=== PATIENT | male | born 1940 | race Caucasian/White ===

== ENCOUNTER 2017-02-04 08:55 | Inpatient (IN) | payer OTHER, MEDICARE ==
[~2017-02-04] VITALS: Ht 182.9 cm; Wt 81.8 kg
[2017-02-04] VITALS (9 sets, daily range): BP systolic 117–156; BP diastolic 58–78; PULSE 91–115; RESP 20–33; O2SAT 89–93
[~2017-02-04 08:55] MED LIST: ACET325T51 PO; ASPI-973 PO; CHOL400T30 PO; LACT1CAP60 PO; LOVA40TA PO; PSYL3.4P5 PO; TAMS0.4C98 PO; UBID1CAP52 PO
[2017-02-04] MEDS ORDERED: 0.9% Sodium Chloride 1,000 ML IV ONE (09:09)
--- NOTE | 2017-02-04 09:09 | ED.REPORT ---
HPI-General Illness Date of Service Feb 04, 2017 ED Provider: Cory Maldonado MD Pt is a 76 y/o male w/ a hx of MS, stage III lymphoma on Rituxan chemotherapy ( last dose January 08), presenting to the ED with family c/o cough onset 2 weeks ago. The patient's had URI-like symptoms and confirmed C. difficile diarrhea 3 weeks ago and since 1 week afterwards the patient has been experiencing similar symptoms. The patient reports possible fever (100F), cough with mild sputum, generalized weakness, SOB, very mild watery diarrhea. Pt denies CP, nausea, vomiting. He has no history of similar symptoms and no history of asthma, COPD, or CHF. Nursing Notes Stated Complaint: CHEST CONGESTION,COUGH,WEAKNESS Chief Complaint: General Complaint Nursing Notes Reviewed: Yes Allergies: Coded Allergies: Iodinated Contrast Media - Oral and (Verified Allergy, Severe, ANAPHYLAXIS , 01/01/17) PATIENT DOES NOT HAVE IODINE-CONTRAST DYE ALLERGY. NO COMPLICATIONS WITH ANY PRIORS SCANS. LL 01/01/17 penicillin (Verified Allergy, Severe, HIVES, 08/02/16) UPDATED FROM UNCODED hydrocodone (Unverified Allergy, Unknown, UNKNOWN, 08/02/16) morphine (Verified Adverse Reaction, Unknown, ALTERATED HEART RATE, ) UPDATED FROM UNCODED Uncoded Allergies: Iodine (Allergy, Severe, ANAPHYLAXIS (CONTRAST DYE), 07/12/16) Pt says he is not allergic to iodine, has had multiple scans without pre-treating. kld 07/12/16 Scheduled Aspirin (Aspirin) 81 Mg Tablet 81 MG PO DAILY Cholecalciferol (Vitamin D3) (Vitamin D) 400 Unit Tablet 400 UNIT PO DAILY Lactobac Cmb #3/Fos/Pantethine (Probiotic & Acidophilus Cap) 1 Each Capsule 1 EACH PO DAILY Lovastatin (Lovastatin) 40 Mg Tablet 40 MG PO HS Psyllium Husk/Aspartame (Metamucil Fiber Singles Packet) 3.4 Gm Powd.pack 3.4 GM PO prn Tamsulosin (Flomax) 0.4 Mg Capsule 0.4 MG PO DAILY Ubidecarenone/Vit E Acetate (Co Q-10 100 mg Softgel) 1 Each Capsule 1 EACH PO DAILY Scheduled PRN Acetaminophen (Acetaminophen) 325 Mg Tablet 650 MG PO Q4H PRN PRN For Pain General Time Seen by MD: 09:08 Chief Complaint Cough Hx Obtained From: Patient Arrived By: Walk-in Sudden in Onset?: No Onset Occurred: More than a week ago... (2 weeks) Symptom Duration: Since onset Severity: Current: No pain currently Severity: Maximum: No pain Similar Sx Previous: No Past Medical History Past Medical History Notes: Oncologist: Dr. 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 Hx kidney stones BPH Hx pressure ulcers Past Surgical History Cystoscopy and stone basket Hammertoe repair Partial skin CA removal Smoking History Former Smoker Social History Alcohol Use: Denies alcohol use Drug Use: Denies drug use Ambulatory Status Independent Review of Systems Full Review of Systems Constitutional: Reports: Fever, Weakness - generalized, Denies: Chills Respiratory: Reports: Non-productive cough, Shortness of breath Cardiovascular: Denies: Chest pain, Dyspnea on exertion GI: Reports: Diarrhea, Denies: Abdominal pain, Nausea, Vomiting Complete sys rev & neg: except as marked. Physical Exam Vital Signs Vital Signs Date Time Temp Pulse Resp B/P Pulse Ox O2 Delivery O2 Flow Rate FiO2 02/04/17 10:14 93 Nasal Cannula 2 02/04/17 10:12 91 20 130/58 89 Room Air 02/04/17 09:00 36.4 115 28 125/72 90 Initial VS: Reviewed, Vital signs abnormal Head / Eyes: Atraumatic, Normocephalic, PERRL Neck: Supple, Full range of motion Abdomen / GI: Soft, Non-tender, No guarding, No rebound, No distention Extremities: Vascular intact, Neuro intact, No swelling, No tenderness Neurologic: Alert, Oriented, Nonfocal Psychiatric: Mood/affect normal, Behavior normal, Normal thought content General/Constitutional: Awake, Alert, No acute distress, Cooperative, Not toxic appearing ENT: Atraumatic, Airway patent Mouth: Positive: Mucous membranes dry Respiratory / Chest: Breath sounds = bilat, No respiratory distress, No rales, No retractions, No stridor Coarse breath sounds bilaterally Cardiovascular: Regular rhythm, Heart sounds NL, No gallop, No murmurs, No rubs Heart Rate / Rhythm: Positive: Tachycardia Skin: Atraumatic, Warm, Dry, Intact Multiple squamos cell lesions about back No new rash Interpretation & Diagnostics Lab Results Interpretation Result Diagram: 02/04/17 0930 02/04/17 0930 Test 02/04/17 09:30 White Blood Count 7.6th/mm3 (3.8-10.1) Red Blood Count 4.21mil/mm3 (4.40-5.80) Hemoglobin 12.6g/dL (13.8-17.2) Hematocrit 37.8% (41.0-50.0) Mean Corpuscular Volume 89.8fL (81-100) Mean Corpuscular Hemoglobin 29.9pg (27.0-35.0) Mean Corpuscular Hemoglobin Concent 33.3% (32.0-37.0) Red Cell Distribution Width 13.9% (12.3-15.4) Platelet Count 176bil/L (150-400) Neutrophils (%) (Auto) 87.7% (40-74) Lymphocytes (%) (Auto) 3.3% (14-46) Monocytes (%) (Auto) 6.8% (4-12) Eosinophils (%) (Auto) 0.9% (0-5) Basophils (%) (Auto) 0.3% (0-3) Sodium Level 137mEq/L (134-144) Potassium Level 3.1mEq/L (3.5-5.2) Chloride Level 94mEq/L (97-108) Carbon Dioxide Level 27mmol/L (18-29) Blood Urea Nitrogen 18mg/dL (8-27) Creatinine 0.90mg/dL (0.76-1.27) Estimat Glomerular Filtration Rate 87mL/min (>59) Glucose Level 121mg/dL (60-99) Calcium Level 9.1mg/dL (8.5-10.1) Magnesium Level 2.0mg/dL (1.6-2.6) Total Bilirubin 0.9mg/dL (0.0-1.2) Aspartate Amino Transf (AST/SGOT) 39U/L (0-50) Alanine Aminotransferase (ALT/SGPT) 29U/L (0-44) Alkaline Phosphatase 78U/L (25-160) Troponin T 0.010ug/L (0.0-0.011) Pro-B-Type Natriuretic Peptide 1540pg/mL (0-486) Total Protein 6.6g/dL (6.4-8.4) Albumin 2.6g/dL (3.4-5.0) Hold Denise Top Tube Received (Received) ECG Interpretation ECG Interpretation: Likely A-fib rate [address] segment elevation ST depression 1-2 mm present in lateral leads Very poor baseline quality EKG Compared to prior dated 02/22/15 he is now tachycardic and does not appear to be in sinus rhythm Time: 09:56 Interpreted by: ED physician Normal ECG Interpretation: No acute ischemic changes ECG Interpretation: Sinus tachycardia rate 102 Frequent PVCs Time: 11:14 Interpreted by: ED physician Normal ECG Interpretation: No acute ischemic changes, Normal axis, Normal intervals X-Ray Chest Interpretation Chest Xray Interpretation: IMPRESSION: 1. Left lower lobe retrocardiac consolidation likely representing pneumonia given clinical history. Dictated by: Issa Loving M.D. on 02/04/2017 at 10:08 Approved by: Issa Loving M.D. on 02/04/2017 at 10:09 Wet read by ED physician: RLL pneumonia View: Portable, AP & lat Interpretation / Wet Read by: Interpret - Radiologist Re-Eval/Medical Decision Med Decision/Clinical Course Pt is a 76 y/o male w/ a hx of MS, stage III lymphoma on Rituxan chemotherapy ( last dose January 08), presenting to the ED with family c/o cough onset 2 weeks ago. The patient's had URI-like symptoms and confirmed C. difficile diarrhea 3 weeks ago and since 1 week afterwards the patient has been experiencing similar symptoms. The patient reports possible fever (100F), cough with mild sputum, generalized weakness, SOB, very mild watery diarrhea. Labs notable as below: CBC: No leukocytosis, HCT of 37.8 CMP: Potassium of 3.1, good renal function, no other sig electrolyte abnormalities Troponin: negative BNP: 1,540 Chest x-ray: Left lower lobe retrocardiac consolidation likely representing pneumonia given clinical history. EKG: Likely A-fib rate [address] No [address] segment elevation ST depression 1-2 mm present in lateral leads Very poor baseline quality EKG Compared to prior dated 02/22/15 he is now tachycardic and does not appear to be in sinus rhythm This time overall constellation of symptoms and presentation suggestive of pneumonia. Given that the patient is on chemotherapy he meets criteria to be treated for hospital-acquired pneumonia. He is allergic to penicillin so I have started him on IV vancomycin, levofloxacin and cefepime. Here in the emergency room he was additionally treated with IV fluids and potassium was repleted. He remained hemodynamically stable and afebrile. I considered other causes of his presentation including pulmonary embolism however the overall clinical picture is overwhelmingly suggestive of pneumonia. Initial screening for acute coronary syndrome is reassuring. Repeat EKG demonstrated sinus rhythm with frequent PVCs though no convincing acute ischemic changes. Patient was discussed with admitting hospitalist and accepted for further management. He is transferred in stable condition. Time of Eval: 10:32 Re-Evaluation/Progress Note: Pt rechecked. Informed pt of need for admission. Pt understands and agrees with plan for admission. All questions addressed. Consultation : Referral / Consult Name: Albaro Evans MD Consulted With: Hospitalist Call Returned at: 10:53 [place] Calciner: Will see patient, Agrees with eval, Agrees with plan, Accepts admit Counseled Regarding: Diagnosis, Lab results, Need for admission Discharge & Departure Primary Impression: Right lower lobe pneumonia Pneumonia type: due to unspecified organism Qualified Code: J18.1 - Lobar pneumonia, unspecified organism Additional Impressions: Hypoxia Hypokalemia Patient on antineoplastic chemotherapy regimen History of lymphoma Tachycardia Fatigue Fatigue type: unspecified Qualified Code: R53.83 - Other fatigue Disposition: ADMITTED TO HOSPITAL Discharge Condition All VS Reviewed: Yes Condition: Stable Referrals: Paul Zazueta MD (PCP) Crit Care Except Billable Proc Time Spent: 75-104 minutes Services Performed: Patient management by me, Time spent at bedside, Reviewing test results, Reviewing imaging, Discussing patient care, Documentation in record, Time with fam/surrogate Scribe Attestation Portions of this note were transcribed by Keaton Steinberg. I, Dr. Maldonado personally performed the history, physical exam and medical decision-making; I reviewed and confirmed the accuracy of the information in the transcribed note. Signed by Julee Tyson, 02/04/17 - 1000 copies to: Paul Zazueta MD, Beck O MD Feb 04, 2017 09:09 KEATON STEINBERG Feb 04, 2017 09:17
[2017-02-04 09:48] LABS: BASOPHILS % (AUTO) 0.3 % (0-3); EOSINOPHILS % (AUTO) 0.9 % (0-5); MONOCYTES % (AUTO) 6.8 % (4-12); Mean Corpuscular Hemoglobin 29.9 pg (27.0-35.0); Mean Corpuscular Volume 89.8 fL (81-100); NEUTROPHILS % (AUTO) 87.7 % (40-74); Platelet Count 176 bil/L (150-400)
[2017-02-04 10:10] LABS: TROPONIN T 0.01 ug/L (0.0-0.011)
[2017-02-04] MEDS ORDERED: Ondansetron 2 mg/mL 2 mL Inj IVPUSH PRN ×2 (10:10→11:10)
[2017-02-04] MEDS ORDERED: Alum-Mag Hydrox-Simeth 30 mL Suspension PO PRN ×2 (10:10→11:10)
--- NOTE | 2017-02-04 10:16 | DRSVH ---
PROCEDURE: X-RAY CHEST, TWO VIEWS ([id number]) INDICATIONS: cough TECHNIQUE: 2 views of the chest were acquired. COMPARISON: [facility], CHEST 2VW, 01/26/2017, 12:58 PM. FINDINGS: Surgical changes and devices: None. Lungs and pleura: No pleural effusions or pneumothorax. There are confluent left retrocardiac lower lobe airspace opacities consistent with consolidation. Mediastinum: Mediastinal contours are normal. Heart size is normal. Bones and chest wall: No suspicious bony abnormalities. Soft tissues appear unremarkable. IMPRESSION: 1. Left lower lobe retrocardiac consolidation likely representing pneumonia given clinical history. Dictated by: Issa Loving M.D. on 02/04/2017 at 10:08 Approved by: Issa Loving M.D. on 02/04/2017 at 10:09
[2017-02-04] MEDS ORDERED: Vancomycin Dose per Pharmacist XX ONE (10:35)
[2017-02-04] MEDS ORDERED: levoFLOXacin Inj 750 MG in IV Premix 1 EACH IV ONE (10:35)
[2017-02-04] MEDS ORDERED: Cefepime Inj 2 GM in IV Premix 1 EACH IV ONE (10:35)
[2017-02-04] MEDS ORDERED: Cefepime 2,000 mg/100 mL D5W Minibag Plus IV ONE ×2 (10:40)
[2017-02-04] MEDS ORDERED: Vancomycin Inj 1,500 MG in 0.9% Sodium Chloride 500 ML IV ONE (10:58)
[2017-02-04] MEDS ORDERED: Polyethylene Glycol (PEG) 17 Gm Powder PO PRN (11:10)
[2017-02-04] MEDS ORDERED: CHOL40003 PO (11:54)
[2017-02-04] MEDS ORDERED: DOXA1TAB PO (11:57)
[2017-02-04] MEDS ORDERED: CALC-714 PO (11:58)
[2017-02-04] MEDS ORDERED: 0.9% Sodium Chloride 250 ML ONE (12:47)
--- NOTE | 2017-02-04 13:50 | PCM.HPMED ---
Subjective Date of Service Feb 04, 2017 Primary Provider: Admitting Physician: Albaro Evans MD Primary Care Physician: Paul Zazueta MD Attending Physician: Albaro Evans MD Admit Status: From the Emergency Department, Full Admit, Admit to Red Team Chief Complaint: Progressively worsening dyspnea/2 weeks Progressively worsening cough/2 weeks History of Present Illness: Len is a pleasant 76-year-old gentleman with past medical history of MS with some left-sided weakness, BPH, HLD , follicular lymphoma on monthly rituximab, skin cancer, squamous cell and basal cell carcinoma currently undergoing serial excisions came to the emergency room due to progressively worsening cough and dyspnea of 2 weeks. states she had similar symptoms before patient developed any symptoms. She Had URI symptoms 2-3 weeks ago which improved by itself. She was not treated with antibiotics but developed diarrhea 5 days after onset of URI symptoms. She was diagnosed with C. difficile colitis and started on antibiotics. She will complete her antibiotic after 3 days. She has on and off diarrhea currently. states patient/ started to have similar symptoms of URI few days after she started to have symptoms. Symptoms include cough, stuffiness and malaise. recovered pretty quickly but patient continued to have progressively worsening coughing and dyspnea. Cough was initially dry but eventually became productive of sputum. He also had low-grade fever. Denies pleuritic chest pain. He had one episode of diarrhea few days ago but resolved now. He also has bilateral eye redness and discharge/crusting since yesterday. He has multiple squamous and basal cell skin cancer. He had recent excision of lesions on his left forearm. He is also scheduled to undergo additional excisions on forearm and lower extremities next week ED course: Tachypneic 28/m, tachycardic 115/m, BP 125/72, saturating 89% on room air, Chest x-ray showed left lower lobe pneumonia, EKG sinus tach Cefepime, Levaquin, vancomycin, given for HCAP given patient with cancer on chemotherapy and admission requested. Review of Systems: A comprehensive review of systems performed, pertinent positives and negatives included in history of present illness Allergies Coded Allergies: Iodinated Contrast Media - Oral and (Verified Allergy, Severe, ANAPHYLAXIS , 01/01/17) PATIENT DOES NOT HAVE IODINE-CONTRAST DYE ALLERGY. NO COMPLICATIONS WITH ANY PRIORS SCANS. LL 01/01/17 penicillin (Verified Allergy, Severe, HIVES, 08/02/16) UPDATED FROM UNCODED hydrocodone (Unverified Allergy, Unknown, UNKNOWN, 08/02/16) morphine (Verified Adverse Reaction, Unknown, ALTERATED HEART RATE, ) UPDATED FROM UNCODED Uncoded Allergies: Iodine (Allergy, Severe, ANAPHYLAXIS (CONTRAST DYE), 07/12/16) Pt says he is not allergic to iodine, has had multiple scans without pre-treating. kld 07/12/16 Home Medications rituximab monthly infusion Aspirin (Aspirin) 81 Mg Tablet 81 MG PO DAILY Cholecalciferol (Vitamin D3) (Vitamin D) 400 Unit Tablet 400 UNIT PO DAILY Lactobac Cmb #3/Fos/Pantethine (Probiotic & Acidophilus Cap) 1 Each Capsule 1 EACH PO DAILY Lovastatin (Lovastatin) 40 Mg Tablet 1/2 tab PO HS Psyllium Husk/Aspartame (Metamucil Fiber Singles Packet) 3.4 Gm Powd.pack 3.4 GM PO prn doxazosin 2mg tab 1/2 tab daily Ubidecarenone/Vit E Acetate (Co Q-10 100 mg Softgel) 1 Each Capsule 1 EACH PO DAILY PMH Suspected STEVEN but never had a sleep study MS diagnosed 1976 with left-sided weakness, uses walker Hiatal hernia follicula 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 Hx kidney stones BPH Surgical History Cystoscopy and stone basket Hammertoe repair Recent skin cancer excision Laparoscopy and biopsy of abdominal lymphoma Family History Father has a history of prostate cancer Social History Hx Alcohol Use: No Hx Substance Use: No Hx Tobacco Use: No Smoking Status: Former Smoker Exam Vital Signs Vital Sign - Last Date Time Temp Pulse Resp B/P Pulse Ox O2 Delivery O2 Flow Rate FiO2 02/04/17 13:32 109 33 91 Nasal Cannula 3.00 02/04/17 12:21 36.8 154/77 Exam Gen. In moderate respiratory distress HEENT: Head is normocephalic atraumatic, bilateral conjunctival erythema with purulent discharge and crusting Lungs left basilar crackle Heart regular rhythm without murmurs gallops or rubs. Tachycardic Abdomen soft nontender without hepatosplenomegaly Extremities pulses are present dorsalis pedis posterior tibialis and radial. Skin left forearm recent excision site healing. Multiple skin cancer lesions on forearm ,back and lower extremities Psych alert and oriented to person place and time Neuro cranial nerves II through XII are grossly intact. power 5/5 on bilateral upper and RLE,3/5 on LLE Lymph: There is no lymphadenopathy appreciated in the cervical supra infraclavicular regions : no singer Lab and Diagnostics Result Diagram: 02/04/1792902/04/17 0930 X-Rays, CTs and MRIs PROCEDURE: X-RAY CHEST, TWO VIEWS ([id number]) INDICATIONS: cough TECHNIQUE: 2 views of the chest were acquired. COMPARISON: [facility] Ferrell , CHEST 2VW, 01/26/2017, 12:58 PM. FINDINGS: Surgical changes and devices: None. Lungs and pleura: No pleural effusions or pneumothorax. There are confluent left retrocardiac lower lobe airspace opacities consistent with consolidation. Mediastinum: Mediastinal contours are normal. Heart size is normal. Bones and chest wall: No suspicious bony abnormalities. Soft tissues appear unremarkable. IMPRESSION: 1. Left lower lobe retrocardiac consolidation likely representing pneumonia given clinical history. Dictated by: Issa Loving M.D. 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 #Sepsis due to HCAP -Tachycardic and tachypneic, -IV fluids given in the ED,NS at 100ml/h -Cefepime, Levaquin, vancomycin started in the ED,c/w that - Blood culture pending,procal 0.78 -CXR left lower lobe retrocardiac pneumonia, CT chest pending -O2 via NC -Patient's history is consistent with pneumonia but he has no fever or leukocytosis. He also has elevated d-dimer and multiple risk factors for PE which includes multiple cancers(lymphoma,basal and squamous cell skin ca) , relative immobility with left-sided weakness due to MS.will obtain CTA chest -Legionella and pneumococcus urine antigen requested, sputum culture sent, resp PCR panel requested -consider ID consult tomorrow # Acute hypoxic respiratory failure due to above -Management as above # acute bacterial conjunctivis -erythromycin eye drop # hyokalemia -repleted # Follicular lymphoma on rituximab -notify Dr Patel tomorrow # skin cancer ,squamous cell and basal cell carcinoma -patient has scheduled excision next week ,may need to reschedule # history of MS not on treatment # BPH -c/w doxazosin # HLD -c/w statin dvt ppx lovenox Patient admitted under inpatient status with expected length of stay > 2 midnights for severity of present symptoms, complexities of treatment plan and risk for adverse events full code per patient Resuscitation Status: CPR: Attempt Resuscitation copies to: Yan Frias MD; Paul Zazueta MD, Melaku MD Feb 04, 2017 13:50
--- NOTE | 2017-02-04 15:48 | DRSVH ---
PROCEDURE: CT ANGIO CHEST PULMONARY EMBOLISM ([id number]) INDICATIONS: dyspnea and elevated d-dimer TECHNIQUE: After the administration of intravenous contrast, 2 mm thick sections acquired from the pulmonary api jackson to the posterior costophrenic angles. 3-dimensional maximum intensity projection (MIP) coronal a nd sagittal reformats were then acquired through the thorax. For radiation dose reduction, the follo wing was used: automated exposure control, adjustment of mA and/or kV according to patient size. COMPARISON: [facility], CT, CT CHEST ABD PELVIS W CON, 01/02/2017, 9:54. FINDINGS: Image quality: There is motion artifact limiting evaluation. Pulmonary arteries: Pulmonary arteries are normal in size, and demonstrate no intraluminal filling d efects to suggest central pulmonary embolism. Evaluation of subsegmental branches is limited due to motion artifact. Lungs and pleura: There is confluent airspace consolidation within the bilateral lower lobes as well as in the dependent segments of the upper lobes. Findings are consistent with pneumonia. No pleural effusions or pneumothorax. Central and peripheral airways are patent. Mediastinum: Heart size is normal, without pericardial effusion. There multiple mildly enlarged med iastinal and right hilar lymph nodes which are increased in size from the prior study. These include a [employer] subcarinal node measuring 1.3 cm in short axis. Thoracic aorta is normal in calibe r and enhancement. Esophagus is normal in caliber, with a small hiatal hernia. Bones and chest wall: No suspicious bony lesions. Ribs and thoracic spine appear intact throughout. Thyroid gland demonstrates no discrete nodules. No axillary or supraclavicular adenopathy. Abdomen: Visualized upper abdominal solid organs appear normal in the early arterial phase of enhanc ement. IMPRESSION: 1. Bilateral areas of consolidation, most prominent within the right lower lobe, consistent with pne umonia. 2. No evidence of central pulmonary embolism. Evaluation of subsegmental branches limited to motion artifact. 2. Mild mediastinal and right hilar lymph node enlargement new from the prior study. Although the f indings may be reactive secondary to patient's presumed pneumonia, short term followup is recommended to demonstrate resolution. Dictated by: Issa Loving M.D. on 02/04/2017 at 15:37 Approved by: Issa Loving M.D. on 02/04/2017 at 15:46
[2017-02-04] MEDS: Erythromycin 0.5% 3.5 Gm Ophthalmic Ointment BOTH_EYES SCH ×2 (15:52→20:04)
[2017-02-04] MEDS: 0.9% Sodium Chloride 1,000 ML IV SCH (15:52)
[2017-02-04 16:01] LABS: APPEARANCE,URINE CLEAR (CLEAR,HAZY); COLOR,URINE YELLOW (YELLOW); OCCULT BLOOD,URINE TRACE (NEGATIVE); PH,URINE 6.5 (5.0-8.0); UROBILINOGEN,URINE NORMAL (NORMAL)
[2017-02-04] MEDS: Cefepime Inj 1,000 MG in Dextrose 5% Minibag Plus 50 ML IV SCH (20:04)
[2017-02-05 00:22] VITALS: BP 121/70; PULSE 109; RESP 24; O2SAT 93
[2017-02-05] MEDS: 0.9% Sodium Chloride 1,000 ML IV SCH ×3 (01:20→16:11)
[2017-02-05] MEDS: Cefepime Inj 1,000 MG in Dextrose 5% Minibag Plus 50 ML IV SCH ×3 (04:12→19:43)
[2017-02-05 04:44] VITALS: BP 128/80; PULSE 96; RESP 26; O2SAT 93
[2017-02-05 05:47] LABS: BASOPHILS % (AUTO) 0.1 % (0-3); EOSINOPHILS % (AUTO) 0.5 % (0-5); MONOCYTES % (AUTO) 6.9 % (4-12); Mean Corpuscular Hemoglobin 29.9 pg (27.0-35.0); Mean Corpuscular Volume 89.6 fL (81-100); NEUTROPHILS % (AUTO) 87.7 % (40-74); Platelet Count 144 bil/L (150-400)
[2017-02-05 06:10] LABS: Magnesium 1.9 mg/dL (1.6-2.6)
[2017-02-05] MEDS ORDERED: Potassium Chloride 20 mEq SR Tablet PO ONE (08:05)
[2017-02-05] MEDS ORDERED: Potassium Chloride Inj 30 MEQ in Dextrose 5% 500 ML IV ONE (08:05)
[2017-02-05] MEDS: Erythromycin 0.5% 3.5 Gm Ophthalmic Ointment BOTH_EYES SCH ×3 (09:22→19:43)
[2017-02-05 11:38] VITALS: PULSE 90
[2017-02-05] MEDS ORDERED: levoFLOXacin Inj 750 MG in IV Premix 1 EACH IV SCH (13:00)
--- NOTE | 2017-02-05 14:15 | PCM.PNMED ---
Subjective Date of Service Feb 05, 2017 Subjective pt still remained tachy, mildly SOB, felt mildly better than yesterday tolerating cefepime no diarrhea having thick sputum Exam Vital Signs Vital Sign - Last Date Time Temp Pulse Resp B/P Pulse Ox O2 Delivery O2 Flow Rate FiO2 02/05/17 04:44 36.7 96 26 128/80 93 Nasal Cannula 2.00 Intake and Output 02/04/17 02/04/17 02/05/17 Cumulative From/Thru 15:00 23:00 07:00 02/04/17 09:00 - 02/04/17 20:10 Intake Total 1000 ml 1035 ml 2035 ml Output Total 350 ml 350 ml Balance 1000 ml 685 ml 1685 ml Intake Oral 800 ml 800 ml IV Total 1000 ml 235 ml 1235 ml Output Urine Total 350 ml 350 ml Exam NAD, comfortably laying down on the bed no JVD, MMM, no LAD RRR, nl s1, s2 no mrg rhonchi throughout, no w,c distended bowel, hypoactive BS+ mildly edematous left hand, sensory intact LE: warm, no edema, pulses 2/2 IVs and Medications Medications Reviewed: Medications were reviewed in detail Lab and Diagnostics Result Diagram: 02/05/17 0508 02/05/17 0508 X-Rays, CTs and MRIs PROCEDURE: X-RAY CHEST, TWO VIEWS ([id number]) INDICATIONS: cough TECHNIQUE: 2 views of the chest were acquired. COMPARISON: [facility], CHEST 2VW, 01/26/2017, 12:58 PM. FINDINGS: Surgical changes and devices: None. Lungs and pleura: No pleural effusions or pneumothorax. There are confluent left retrocardiac lower lobe airspace opacities consistent with consolidation. Mediastinum: Mediastinal contours are normal. Heart size is normal. Bones and chest wall: No suspicious bony abnormalities. Soft tissues appear unremarkable. IMPRESSION: 1. Left lower lobe retrocardiac consolidation likely representing pneumonia given clinical history. Dictated by: Issa Loving M.D. 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 acute, active, #Sepsis due to HCAP, Tachycardic and tachypneic, procal 0.78. CXR left lower lobe retrocardiac pneumonia, CT chest showed dense consolidation at bilateral bases R>L, possibly represent post obstructive pneumonia. PE ruled out -IV fluids given in the ED,NS at 100ml/h -Cefepime, Levaquin, vancomycin started in the ED, continue for now, appreciate ID insight -O2 via NC as needed -awaits infectious w/u: Legionella and pneumococcus urine antigen requested, sputum culture sent, resp PCR panel requested # Acute hypoxic respiratory failure due to above, 93% on 2liters, -Management as above -so far, pt didn't require advance airway, will monitor for now in [facility], possible transfer if O2 requirement goes up. # acute bacterial conjunctivis -erythromycin eye drop # history of MS, patient also noticed severe lower extremity weakness with MS flare in the past, which was similar to recent worsening of LE weakness, denied any paresthesia, focal weakness. -appreciate daily PT, not initiate immunosuppressive with these findings yet, monitor sx daily #severe hyokalemia, POA, presumably GI fluid loss, chronic, stable # Follicular lymphoma on rituximab monthly , last dose mid December. -notify Dr Patel today -given CT findings, pt may require bronchoscopic bx in the future, unclear current dz status, will defer to oncology # skin cancer ,squamous cell and basal cell carcinoma -patient has scheduled excision next week ,may need to reschedule # BPH -c/w doxazosin # HLD -c/w statin dvt ppx lovenox dispo: 3-4more days, Full Code VTE Mechanical Devices: Intermittant Pneumatic CD Resuscitation Status: CPR: Attempt Resuscitation Time spent 35min Thomas Camarena MD Feb 05, 2017 08:47
[2017-02-05 17:00] VITALS: BP 121/80; PULSE 94; RESP 24; O2SAT 94
[2017-02-05 19:36] VITALS: BP 117/68; PULSE 97; RESP 20; O2SAT 91
[2017-02-05 20:00] VITALS: PULSE 103
--- NOTE | 2017-02-05 21:57 | CONS ---
[address] [address] CONSULTATION REPORT PATIENT: LILA MCKEON : 1940 MR#: [id number] ADMIT: 02/04/2017 JOB ID: [id number] DATE OF SERVICE: 02/05/[address] Camarena for this timely consult. REASON FOR CONSULTATION: Bilateral right greater than left pneumonia in a patient with underlying multiple sclerosis and B-cell lymphoma. HISTORY OF PRESENT ILLNESS: The patient is a 76-year-old, retired [employer] with underlying MS and lymphoma. He reports that about two weeks ago he developed increasing cough which was productive of whitish sputum. This was in association with perhaps some increasing shortness of breath and some subjective low-grade fever and sweats. This slowly progressed until yesterday when he was so weak that it sounds like he fell off the toilet yesterday while in the bathroom and because of progressive weakness as well as the productive cough ,subjective fever and malaise, he was brought to the emergency department and admitted. Chest imaging done yesterday suggested right greater than left pneumonia and, for this reason, the patient was admitted for additional evaluation and treatment. It is unclear to me exactly why he was considered to have healthcare-associated pneumonia as it has been years since he has been in the hospital, and he lives at home with his near [place] rather than in a [facility] facility but, nonetheless, he was placed on cefepime and levofloxacin as empiric treatment for this pneumonia. PAST MEDICAL HISTORY: 1. Multiple sclerosis times more than 20 years. 2. B-cell lymphoma controlled with monthly rituximab. 3. Basal cell carcinomas. 4. Squamous cell carcinoma. SOCIAL HISTORY: The patient lives [place] with his . The patient smoked in the distant past. Has not had alcohol in many years either. He and his used to drive back and forth to [place] regularly, but their last drive back there was about three years ago and they have not traveled out of state since that time. FAMILY HISTORY: Negative for tuberculosis in 1st and 2nd-degree relatives. REVIEW OF SYSTEMS: The patient has no significant headache. No acute visual change. No sore throat. He does have the productive cough, as described. He has intermittently hoarse voice. No nausea, vomiting, diarrhea, though we did have some minimal diarrhea symptoms about a week ago. No genitourinary symptoms. He does not have an indwelling Mann nor a neurogenic bladder. The patient is unable to ambulate very well because of his progressive MS and uses a walker and/or a cane. A walker as needed whenever he leaves the house. No skin rashes noted. The remainder of the review of systems is negative. PHYSICAL EXAMINATION: Reveals a somewhat debilitated, 76-year-old gentleman lying at about 45 degrees in his hospital bed. He has been afebrile during his short time here in the hospital. Temperature has been hypothermic at times, is 34.4 during a prior admission, but on this admission has been right around 37 degrees, currently 36.7, pulse is 90, respiratory rate 26, blood pressure 128/80, saturating well on 2 L. He is in no acute distress. Head is notable for a small laceration on his posterior scalp secondary to his fall. This appears uninfected. Sinuses nontender. Eyes without conjunctivitis. Oral cavity: No thrush or hairy leukoplakia. Neck without adenopathy or overt JVD. The lungs with some rales at the bases, perhaps right greater than left. Cardiac tones: Regular rate and rhythm without significant murmur. Abdomen: Slightly distended, diffusely but without focal tenderness or mass. No hepatosplenomegaly. No ascites. Does not have a Mann catheter. No skin rashes noted. His extremities are significant for weakness bilaterally, probably no more than 3+/5. Minimal peripheral edema. No evidence of synovitis. No evidence of skin breakdown. He has peripheral IVs in both arms. LABORATORIES: Include white count 7500 x2 days in a row now, a mild left shift, 87% segs, creatinine 0.71. LFTs normal. Albumin 2.5. Procalcitonin was 0.78 yesterday, 0.64 today. Urinalysis 0-5 white cells. IgG is excellent at 752. Urine Legionella and pneumococcal antigens are negative. Micro includes negative blood cultures and initial sputum Gram stain moderate polys and minimal mixed shaun. Respiratory viral multiplex PCR negative. MRSA screen negative. IMAGING: Includes a CT scan of the chest which we carefully reviewed on the monitor. It shows bilateral consolidation, much more so on the right, consistent with pneumonia. There is no evidence of PE. Some adenopathy is noted. IMPRESSION: This is a patient who appears to have community-acquired pneumonia. Though he is on rituximab, he really is not terribly immunosuppressed. Rituximab predisposes minimally to infection and typically the infections which are seen with rituximab include Pneumocystis, crypto, CMV or hepatitis B reactivation. Only crypto and Pneumocystis would be pulmonary-type infections and his chest CT does not suggest either. RECOMMENDATIONS: 1. Will continue with current antibiotics but with an eye towards narrowing considerably. 2. Cryptoantigen will be ordered. 3. Will convert the levofloxacin from IV to oral. 4. As the patient improves, it may be reasonable to send him out on cefuroxime alone in the near future. 5. I would continue to get procalcitonins on a fairly frequent level and use this is a marker for improvement. Thank you very much for this consult.
[2017-02-06] VITALS (9 sets, daily range): BP systolic 122–161; BP diastolic 68–86; PULSE 73–99; RESP 18–20; O2SAT 91–97
[2017-02-06] MEDS: Cefepime Inj 1,000 MG in Dextrose 5% Minibag Plus 50 ML IV SCH ×3 (04:03→23:32)
[2017-02-06 06:46] LABS: BASOPHILS % (AUTO) 0.1 % (0-3); EOSINOPHILS % (AUTO) 0.5 % (0-5); MONOCYTES % (AUTO) 6.6 % (4-12); Mean Corpuscular Hemoglobin 29.7 pg (27.0-35.0); Mean Corpuscular Volume 89.3 fL (81-100); NEUTROPHILS % (AUTO) 88.4 % (40-74); Platelet Count 153 bil/L (150-400)
[2017-02-06 06:55] LABS: Magnesium 1.8 mg/dL (1.6-2.6); Phosphorus 2.5 mg/dL (2.5-4.9)
[2017-02-06] MEDS: levoFLOXacin 750 mg Tablet PO SCH (08:18)
[2017-02-06] MEDS: Erythromycin 0.5% 3.5 Gm Ophthalmic Ointment BOTH_EYES SCH ×3 (08:20→21:16)
[2017-02-06] MEDS ORDERED: Potassium Chloride 20 mEq SR Tablet PO ONE (11:00)
[2017-02-06] MEDS ORDERED: Potassium Chloride Inj 20 MEQ in Dextrose 5% 250 ML IV ONE (11:00)
--- NOTE | 2017-02-06 11:06 | PCM.PNMED ---
Subjective Date of Service Feb 06, 2017 Subjective sputum is breaking up, still coughing, denied SOB still fairly weak, feels mildly better than yesterday labs on right direction Exam Vital Signs Vital Sign - Last Date Time Temp Pulse Resp B/P Pulse Ox O2 Delivery O2 Flow Rate FiO2 02/06/17 10:10 36.7 93 18 122/68 93 Nasal Cannula 2.00 Intake and Output 02/05/17 02/05/17 02/06/17 Cumulative From/Thru 15:00 23:00 07:00 02/04/17 09:00 - 02/06/17 06:16 Intake Total 800 ml 3011 ml 1766 ml 7612 ml Output Total 450 ml 700 ml 1500 ml Balance 350 ml 3011 ml 1066 ml 6112 ml Intake Oral 800 ml 1000 ml 2600 ml IV Total 3011 ml 766 ml 5012 ml Output Urine Total 450 ml 700 ml 1500 ml # Voids 2 2 # Bowel Movements 0 0 0 Exam NAD, comfortably laying down on the bed no JVD, MMM, no LAD RRR, nl s1, s2 no mrg mild rhonchi throughout, no w,c distended bowel, hypoactive BS+ mildly edematous left hand, improved from yesterday, sensory intact LE: warm, no edema, pulses 2/2 IVs and Medications Medications Reviewed: Medications were reviewed in detail Lab and Diagnostics Result Diagram: 02/06/17 0600 02/06/17 0600 X-Rays, CTs and MRIs PROCEDURE: X-RAY CHEST, TWO VIEWS ([id number]) INDICATIONS: cough TECHNIQUE: 2 views of the chest were acquired. COMPARISON: [facility], CHEST 2VW, 01/26/2017, 12:58 PM. FINDINGS: Surgical changes and devices: None. Lungs and pleura: No pleural effusions or pneumothorax. There are confluent left retrocardiac lower lobe airspace opacities consistent with consolidation. Mediastinum: Mediastinal contours are normal. Heart size is normal. Bones and chest wall: No suspicious bony abnormalities. Soft tissues appear unremarkable. IMPRESSION: 1. Left lower lobe retrocardiac consolidation likely representing pneumonia given clinical history. Dictated by: Issa Loving M.D. 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 acute, active, #Sepsis due to HCAP, Tachycardic and tachypneic, procal 0.78. CXR left lower lobe retrocardiac pneumonia, CT chest showed dense consolidation at bilateral bases R>L, possibly represent post obstructive pneumonia. PE ruled out -pt remained HD stable, afebrile, -IV fluids given in the ED,NS at 100ml/h, will consider to stop today -Cefepime, Levaquin, vancomycin started in the ED, continue cefepime/levaquin per ID, -O2 via NC as needed -awaits infectious w/u ngtd: Legionella and pneumococcus urine antigen requested , sputum culture sent, resp PCR panel # Acute hypoxic respiratory failure due to above, 93% on 2liters, -Management as above, O2 requirement remained similar -so far, pt didn't require advance airway, will monitor for now in [facility], possible transfer if O2 requirement goes up. # acute bacterial conjunctivis -continue erythromycin eye drop # history of MS, patient also noticed severe lower extremity weakness with MS flare in the past, which was similar to recent worsening of LE weakness, denied any paresthesia, focal weakness. -appreciate daily PT, not initiate immunosuppressive with these findings yet, monitor sx daily #severe hyokalemia, POA, presumably GI fluid loss, replete K>4 daily chronic, stable # Follicular lymphoma on rituximab monthly , last dose mid December. -notify Dr Patel today -given CT findings, pt may require bronchoscopic bx in the future, unclear current dz status, will defer to oncology # skin cancer ,squamous cell and basal cell carcinoma -patient has scheduled excision next week ,may need to reschedule # BPH -c/w doxazosin # HLD -c/w statin dvt ppx lovenox dispo: 3-4more days, possibly SNF given profound weakness, appreciate PT eval Full Code VTE Mechanical Devices: Intermittant Pneumatic CD Resuscitation Status: CPR: Attempt Resuscitation Time spent 35min Thomas Camarena MD Feb 06, 2017 11:04
[2017-02-06] MEDS: 0.9% Sodium Chloride 1,000 ML IV SCH ×2 (11:16→17:20)
--- NOTE | 2017-02-06 11:28 | PROG NOTE ---
[address] [address] PROGRESS NOTE PATIENT: LILA MCKEON : 1940 MR#: [id number] ADMIT: 02/04/2017 JOB ID: [id number] DATE: 02/06/2017 INFECTIOUS DISEASE FOLLOW UP NOTE: REASON FOR FOLLOWUP: Pneumonia. INTERVAL HISTORY: Overnight, the patient reports he has continued to have a hacking productive cough, but has not been especially short of breath. He has had no fevers, chills or sweats. Overall he thinks he has improved somewhat. No GI symptoms are noted. PHYSICAL EXAMINATION: Reveals an afebrile gentleman, temperature 36.7, pulse 86, respiratory rate 18, blood pressure 122/68, saturating well on 2 L. No acute distress. Oral cavity unremarkable. Lungs with decreased breath sounds at the right base and some rales are present there. Abdomen benign. No skin rash. LABORATORIES: Include white count 9400, 153,000 platelets. Creatinine 0.67. LFTs normal. Procalcitonin gradually declining. It was 0.78, now down to 0.48. Serologic studies include a crypto antigen is pending. Negative urine Legionella and pneumococcal antigens. Negative MRSA screen. Negative respiratory viral PCR. Negative blood cultures and sputum which grew mixed normal shaun. The CT scan of the chest was reviewed yesterday. It showed right greater than left pulmonary infiltrates. IMPRESSION: This patient, who takes rituximab for lymphoma, appears to have a community-acquired pneumonia and is improving. At this point, I think we can start to narrow his antibiotics considerably. The patient is currently receiving cefepime and levofloxacin. I think this is a reasonable combination while he is here but once he is ready to go he could just be continued on levo alone to be continued through approximately February 11. RECOMMENDATIONS: 1. Continue combination of cefepime and levo while here in hospital but he could be discharged at any time from an Infectious Disease point of view. 2. Once the patient is ready for discharge I would send him out on levo 750 once a day to be continued through February 11. 3. ID will go ahead and sign off at this time as there are no active issues.
[2017-02-06] MEDS: Lactobacillus Rhamnosus 10 Bil Unit Capsule PO SCH ×3 (12:44→21:16)
[2017-02-07] VITALS (7 sets, daily range): BP systolic 100–131; BP diastolic 61–75; PULSE 63–96; RESP 18–22; O2SAT 90–94
[2017-02-07] MEDS: 0.9% Sodium Chloride 1,000 ML IV SCH (02:37)
[2017-02-07] MEDS: Cefepime Inj 1,000 MG in Dextrose 5% Minibag Plus 50 ML IV SCH ×3 (06:32→20:48)
[2017-02-07 06:38] LABS: BASOPHILS % (AUTO) 0.1 % (0-3); EOSINOPHILS % (AUTO) 0.7 % (0-5); MONOCYTES % (AUTO) 7.3 % (4-12); Mean Corpuscular Hemoglobin 29.5 pg (27.0-35.0); Mean Corpuscular Volume 87.8 fL (81-100); NEUTROPHILS % (AUTO) 86.2 % (40-74); Platelet Count 171 bil/L (150-400)
[2017-02-07 07:17] LABS: Magnesium 1.8 mg/dL (1.6-2.6); Phosphorus 2.8 mg/dL (2.5-4.9)
[2017-02-07] MEDS: Lactobacillus Rhamnosus 10 Bil Unit Capsule PO SCH ×4 (08:24→20:48)
[2017-02-07] MEDS: levoFLOXacin 750 mg Tablet PO SCH (08:24)
[2017-02-07] MEDS: Erythromycin 0.5% 3.5 Gm Ophthalmic Ointment BOTH_EYES SCH ×3 (08:25→20:48)
[2017-02-07] MEDS ORDERED: MAGNESIUM CMB PO SCH (09:55)
[2017-02-07] MEDS ORDERED: CALCIUM CARB PO SCH (09:55)
[2017-02-07] MEDS ORDERED: Potassium Chloride 20 mEq SR Tablet PO ONE (09:55)
[2017-02-07] MEDS ORDERED: [UNRECOGNIZED DRUG - OTHER] PO SCH (09:55)
--- NOTE | 2017-02-07 10:25 | PCM.PNMED ---
Subjective Date of Service Feb 07, 2017 Subjective pt still hypoxic low 90s on 2liters NC generally feeling better, still very weak, limited ambulation, PT recommended SNF awaits Dr.Jafari sorensen today ID signed off yesterday denied SOB, intermittently coughing, mild sputum pt had resistance with urination, noted Cadura was not started, resumed today denied full ness, back, dysuria Exam Vital Signs Vital Sign - Last Date Time Temp Pulse Resp B/P Pulse Ox O2 Delivery O2 Flow Rate FiO2 02/07/17 09:07 37.2 96 20 100/64 93 Nasal Cannula 2.00 Intake and Output 02/06/17 02/06/17 02/07/17 Cumulative From/Thru 15:00 23:00 07:00 02/04/17 09:00 - 02/07/17 06:22 Intake Total 248 ml 1410 ml 1378 ml 00801 ml Output Total 600 ml 1215 ml 3315 ml Balance 248 ml 810 ml 163 ml 7333 ml Intake Oral 860 ml 1000 ml 4460 ml IV Total 248 ml 550 ml 378 ml 6188 ml Output Urine Total 600 ml 1215 ml 3315 ml # Voids 2 # Bowel Movements 0 0 0 Exam NAD, comfortably laying down on the bed no JVD, MMM, no LAD RRR, nl s1, s2 no mrg mild rhonchi throughout, no w,c S,distended bowel, nontender, hypoactive BS+ mildly edematous left hand, improved from yesterday, sensory intact LE: warm, no edema, pulses 2/2 IVs and Medications Medications Reviewed: Medications were reviewed in detail Lab and Diagnostics Result Diagram: 02/07/17 0550 02/07/17 0550 X-Rays, CTs and MRIs PROCEDURE: X-RAY CHEST, TWO VIEWS ([id number]) INDICATIONS: cough TECHNIQUE: 2 views of the chest were acquired. COMPARISON: [facility], CHEST 2VW, 01/26/2017, 12:58 PM. FINDINGS: Surgical changes and devices: None. Lungs and pleura: No pleural effusions or pneumothorax. There are confluent left retrocardiac lower lobe airspace opacities consistent with consolidation. Mediastinum: Mediastinal contours are normal. Heart size is normal. Bones and chest wall: No suspicious bony abnormalities. Soft tissues appear unremarkable. IMPRESSION: 1. Left lower lobe retrocardiac consolidation likely representing pneumonia given clinical history. Dictated by: Issa Loving M.D. 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 acute, active, #Sepsis due to HCAP, Tachycardic and tachypneic, procal 0.78. CXR left lower lobe retrocardiac pneumonia, CT chest showed dense consolidation at bilateral bases R>L, possibly represent post obstructive pneumonia. PE ruled out -pt remained HD stable, afebrile, -IV fluids given in the ED,NS at 100ml/h, stopped today -Cefepime, Levaquin, vancomycin started in the ED, continue cefepime/levaquin per ID, will switch to oral Levquin tomorrow -O2 via NC as needed -awaits infectious w/u ngtd: Legionella and pneumococcus urine antigen requested , sputum culture sent, resp PCR panel # Acute hypoxic respiratory failure due to above, 93% on 2liters, -Management as above, O2 requirement remained similar -so far, pt didn't require advance airway, will monitor for now in [facility], possible transfer if O2 requirement goes up. # acute bacterial conjunctivis -continue erythromycin eye drop # history of MS, patient also noticed severe lower extremity weakness with MS flare in the past, which was similar to recent worsening of LE weakness, denied any paresthesia, focal weakness. -appreciate daily PT, not initiate immunosuppressive with these findings yet, monitor sx daily #severe hyokalemia, POA, presumably GI fluid loss, replete K>4 daily # Follicular lymphoma on rituximab monthly , last dose mid December. -appreciate Dr Jorge sorensen given Mild mediastinal and right hilar lymph node enlargement on CT, possible post-obstructive PNA, -given CT findings, pt may require bronchoscopic bx in the future, unclear current dz status, will defer to oncology chronic, stable # skin cancer ,squamous cell and basal cell carcinoma -patient has scheduled excision next week ,may need to reschedule # BPH -c/w doxazosin # HLD -c/w statin dvt ppx lovenox dispo: pt recommended SNF however, pt/family wants home with PT, appreciate PT daily assessment, possible d/c tomorrow with home PT given improving clinical condition. Full Code VTE Mechanical Devices: Intermittant Pneumatic CD Resuscitation Status: CPR: Attempt Resuscitation Time spent 35min Thomas Camarena MD Feb 07, 2017 09:35
[2017-02-07] MEDS: Polyethylene Glycol (PEG) 17 Gm Powder PO SCH ×2 (11:24→20:49)
[2017-02-07 13:12] LABS: Cryptococcal Ag Negative (Negative)
--- NOTE | 2017-02-07 15:01 | CCS NOTE ---
[facility] [address], [address] [address] MEDICAL ONCOLOGY OFFICE NOTE PATIENT: LILA MCKEON : 1940 MR#: [id number] DATE: 02/04/2017 JOB ID: [id number] DATE: 02/07/2017 SUBJECTIVE: The patient is a 76-year-old pleasant gentleman with history of stage 3 follicular lymphoma with a large mass in the left mesentery of the hemiabdomen diagnosed in fall and treated with five cycles of Rituxan and bendamustine, finishing that in September 2015 and showing complete radiographic response based on the PET scan of October 2015. He has been on maintenance therapy with rituximab every two months that should be planned to continue for a total of two years. He had a colonoscopy in July [address] Barajas showing polyps and diverticula and tubular adenoma. No malignancy. His last total serum IgG level was 752 as of January 01, 2017 and therefore no evidence of hypogammaglobinemia. His last dose of Rituxan was administered on January 08 and is usually repeated every two months. He is admitted with a 2-week history of worsening cough, shortness of breath, and voice hoarseness, and had a slightly elevated precalcitonin. He did have a low oxygen level and on admission on February [address] angio of the chest to rule out PE which was negative. However, it showed a large area of consolidation in the right lower lobe and some other smaller bilateral airspace changes suggestive for pneumonia. His mediastinal and right hilar lymph nodes were minimally enlarged compared to the previous one, most likely reactive. I saw him at bedside today with his family present including his son. He is on antibiotics with levofloxacin, vancomycin, and cefepime. OBJECTIVE: On exam his O2 sat is slightly suppressed. He is on 2 L of oxygen. Currently it is 94%. Afebrile, with a temperature of 37. He has not been febrile at all during this hospitalization. He has a hoarse voice, cough with rales in the bases, and no edema, no rash. LABORATORIES: White count 8.4, hemoglobin 10.9, platelets 171. Chemistry shows a potassium of 3.1, normal creatinine. LFTs stable. Albumin down to 2.2. Cultures so far negative. ASSESSMENT AND PLAN: A 76-year-old gentleman with history of follicular lymphoma two years ago treated with Rituxan and bendamustine and has been receiving maintenance rituximab. He has had complete radiographic response. He is admitted with right lower lobe pneumonia. The CT scan, which was in the form of CT angio to rule out PE, has revealed that after he had symptoms for a couple of weeks of progressively worsening cough and shortness of breath. I personally reviewed the CT scan images. Fortunately we have a very recent comparison CT of chest, abdomen, and pelvis which he had just four weeks ago on January 02, 2017, which showed essentially no abnormality in the chest. Therefore almost certainly the current changes are not malignant in nature and are consistent with pneumonia with slight reactive lymphadenopathy in the ipsilateral hilum and mediastinum. I reassured the family and he should continue his antibiotics. He has not had any hypogammaglobinemia from his rituximab therapy and therefore after recovery from this infection we will likely resume rituximab with a slight delay, with the next one in March.
[2017-02-08] VITALS (7 sets, daily range): BP systolic 109–124; BP diastolic 61–73; PULSE 60–92; RESP 18–22; O2SAT 92–93
[2017-02-08] MEDS: Cefepime Inj 1,000 MG in Dextrose 5% Minibag Plus 50 ML IV SCH ×3 (03:53→22:23)
[2017-02-08] MEDS: levoFLOXacin 750 mg Tablet PO SCH (07:41)
[2017-02-08 08:25] LABS: BASOPHILS % (AUTO) 0.2 % (0-3); EOSINOPHILS % (AUTO) 1.7 % (0-5); Mean Corpuscular Hemoglobin 29.8 pg (27.0-35.0); Mean Corpuscular Volume 87.1 fL (81-100); NEUTROPHILS % (AUTO) 82.2 % (40-74); Platelet Count 165 bil/L (150-400)
[2017-02-08] MEDS: Polyethylene Glycol (PEG) 17 Gm Powder PO SCH ×2 (08:30→20:30)
[2017-02-08 09:00] LABS: Magnesium 1.8 mg/dL (1.6-2.6); Phosphorus 3.1 mg/dL (2.5-4.9)
[2017-02-08] MEDS: Lactobacillus Rhamnosus 10 Bil Unit Capsule PO SCH ×4 (09:36→22:27)
[2017-02-08] MEDS: Erythromycin 0.5% 3.5 Gm Ophthalmic Ointment BOTH_EYES SCH ×3 (09:37→22:24)
--- NOTE | 2017-02-08 10:29 | PCM.PNMED ---
Subjective Date of Service Feb 08, 2017 Subjective pt is getting stronger but still hypoxic, [id number] with PT, required 2liters of O2 pt is refusing SNF PT stated that pt needs special boot given foot drops limiting his ability to walk breathing better, still coughing up sputum, but breaking up had 1BM yesterday, with increased bowel regimen Exam Vital Signs Vital Sign - Last Date Time Temp Pulse Resp B/P Pulse Ox O2 Delivery O2 Flow Rate FiO2 02/08/17 05:47 80 02/08/17 05:04 36.3 18 124/70 92 Nasal Cannula 2.00 Intake and Output 02/07/17 02/07/17 02/08/17 Cumulative From/Thru 15:00 23:00 07:00 02/04/17 09:00 - 02/08/17 06:22 Intake Total 395 ml 716 ml 43327 ml Output Total 720 ml 838 ml 4873 ml Balance -325 ml -122 ml 6886 ml Intake Oral 320 ml 600 ml 5380 ml IV Total 75 ml 116 ml 6379 ml Output Urine Total 720 ml 838 ml 4873 ml # Voids 2 # Bowel Movements 1 0 1 Exam NAD, comfortably laying down on the bed no JVD, MMM, no LAD RRR, nl s1, s2 no mrg mild rhonchi throughout, no w,c S,distended bowel, nontender, hypoactive BS+ mildly edematous left hand, improved from yesterday, sensory intact LE: warm, no edema, pulses 2/2 IVs and Medications Medications Reviewed: Medications were reviewed in detail Lab and Diagnostics Result Diagram: 02/08/17 0755 02/08/17 0755 X-Rays, CTs and MRIs PROCEDURE: X-RAY CHEST, TWO VIEWS ([id number]) INDICATIONS: cough TECHNIQUE: 2 views of the chest were acquired. COMPARISON: [facility], CHEST 2VW, 01/26/2017, 12:58 PM. FINDINGS: Surgical changes and devices: None. Lungs and pleura: No pleural effusions or pneumothorax. There are confluent left retrocardiac lower lobe airspace opacities consistent with consolidation. Mediastinum: Mediastinal contours are normal. Heart size is normal. Bones and chest wall: No suspicious bony abnormalities. Soft tissues appear unremarkable. IMPRESSION: 1. Left lower lobe retrocardiac consolidation likely representing pneumonia given clinical history. Dictated by: Issa Loving M.D. 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 acute, active, #Sepsis due to HCAP, Tachycardic and tachypneic, procal 0.78. CXR left lower lobe retrocardiac pneumonia, CT chest showed dense consolidation at bilateral bases R>L, possibly represent post obstructive pneumonia. PE ruled out. infectious w/u ngtd: Legionella and pneumococcus urine antigen requested, sputum culture sent, resp PCR panel -pt remained HD stable, afebrile, -IV fluids given in the ED,NS at 100ml/h, stopped 02/07 -Cefepime, Levaquin, vancomycin started in the ED, continue cefepime/levaquin per ID, switched to oral Levquin q48h starting tomorrow -O2 via NC as needed # Acute hypoxic respiratory failure due to above, 93% on 2liters, high80% with exertion, likely due to lobar PNA, possible atelectasis -aggressive chest PT, accapella today, OOB to chair, encourage sputum expectoration, -continue O2 supplement target >92-95%, it continue to dessat, will get RT to assess home O2 needs tomorrow AM # acute bacterial conjunctivis -continue erythromycin eye drop # history of MS, patient also noticed severe lower extremity weakness with MS flare in the past, which was similar to recent worsening of LE weakness, denied any paresthesia, focal weakness. -appreciate daily PT, not initiate immunosuppressive with these findings yet, monitor sx daily -will Rx special boot to avoid falls #severe hyokalemia, POA, presumably GI fluid loss, replete K>4 daily # Follicular lymphoma on rituximab monthly , last dose mid December. -appreciate Dr Jorge sorensen given Mild mediastinal and right hilar lymph node enlargement on CT, possible post-obstructive PNA, -given CT findings, pt may require bronchoscopic bx in the future, unclear current dz status, will defer to oncology chronic, stable # skin cancer ,squamous cell and basal cell carcinoma -patient has scheduled excision next week ,may need to reschedule # BPH -c/w doxazosin # HLD -c/w statin dvt ppx lovenox dispo: pt recommended SNF however, pt/family wants home with PT, appreciate PT daily assessment, possible d/c tomorrow with home PT RN, [employer] given improving clinical condition. Full Code VTE Mechanical Devices: Intermittant Pneumatic CD Resuscitation Status: CPR: Attempt Resuscitation Time spent 35min Thomas Camarena MD Feb 08, 2017 10:29
[2017-02-09 00:28] VITALS: BP 121/75; PULSE 90; RESP 20; O2SAT 92
[2017-02-09 04:35] VITALS: BP 111/70; PULSE 90; RESP 22; O2SAT 94
[2017-02-09] MEDS: Cefepime Inj 1,000 MG in Dextrose 5% Minibag Plus 50 ML IV SCH (04:36)
[2017-02-09 06:11] LABS: BASOPHILS % (AUTO) 0.4 % (0-3); EOSINOPHILS % (AUTO) 2.1 % (0-5); MONOCYTES % (AUTO) 8.4 % (4-12); NEUTROPHILS % (AUTO) 80.1 % (40-74); Platelet Count 168 bil/L (150-400)
[2017-02-09 06:58] LABS: Magnesium 1.9 mg/dL (1.6-2.6); Phosphorus 3.1 mg/dL (2.5-4.9)
[2017-02-09] MEDS: Polyethylene Glycol (PEG) 17 Gm Powder PO SCH (08:29)
[2017-02-09] MEDS: levoFLOXacin 750 mg Tablet PO SCH (08:29)
[2017-02-09] MEDS: Lactobacillus Rhamnosus 10 Bil Unit Capsule PO SCH ×2 (08:30→12:10)
[2017-02-09] MEDS: Erythromycin 0.5% 3.5 Gm Ophthalmic Ointment BOTH_EYES SCH (08:30)
[2017-02-09 08:38] VITALS: BP 103/62; PULSE 93; RESP 16; O2SAT 92
[2017-02-09 09:12] VITALS: O2SAT 94
[2017-02-09 09:58] VITALS: PULSE 93
[2017-02-09 11:58] VITALS: O2SAT 88
[2017-02-09] MEDS ORDERED: LEVO750T9 PO (13:03)
[2017-02-09] MEDS ORDERED: ERYT1OIN7 BOTH_EYES (13:03)
--- NOTE | 2017-02-09 13:07 | PCM.DIMED ---
Discharge Instructions Date of Service Feb 09, 2017 Dates of Hospitalization Feb 04, 2017 at 11:56 Discharge Diagnosis Discharge Diagnosis community acquired pneumonia acute respiratory failure due to pneumonia probable sleep apnea Medication Instructions Additional med instructions Please take Levofloxacin 750mg for 9more days Diet Discharge Diet: No restrictions Activity Discharge Activity: No restrictions Call your provider Call your provider for: Shortness of breath Patient Instructions Patient Instructions You were hospitalized with symptoms of pneumonia, generalized weakness. your condition significantly improved with medical treatment. Please follow medicine instruction as above and follow up with your doctor in 2weeks Please note that your oxygen level dropped while moving, please use Oxygen on your nare when you mobilize and at night until you see your doctor. Please note that given your observed apenea episodes, you will benefit from sleep study, which can be arranged by your doctor Follow-up Provider: Paul Zazueta MD Follow-up with PCP in: 2 weeks Thomas Camarena MD Feb 09, 2017 13:07
--- NOTE | 2017-02-11 14:58 | PCM.DC.MED ---
Discharge Summary Date of Service Feb 09, 2017 Dates of Hospitalization Date of Hospital Admission Feb 04, 2017 at 11:56 Date of Discharge: Feb 09, 2017 Providers: Admitting Physician: Albaro Evans MD Primary Care Physician: Paul Zazueta MD Attending Physician: Albaro Evans MD Diagnosis at Time of Discharge Diagnosis at Time of Discharge acute dx sepsis secondary to community acquired pneumonia acute respiratory failure due to pneumonia nocturnal hypoxic episode due to probable sleep apnea acute bacterial conjunctivis acute on chronic LE weakness in the setting of sepsis, hx of MS hypokalemia Chronic dx # Follicular lymphoma on rituximab monthly # skin cancer ,squamous cell and basal cell carcinoma, # BPH # HLD Procedures XRay, CTs & MRIs PROCEDURE: CT ANGIO CHEST PULMONARY EMBOLISM ([id number]) INDICATIONS: dyspnea and elevated d-dimer TECHNIQUE: After the administration of intravenous contrast, 2 mm thick sections acquired from the pulmonary apices to the posterior costophrenic angles. 3-dimensional maximum intensity projection (MIP) coronal and sagittal reformats were then acquired through the thorax. For radiation dose reduction, the following was used: automated exposure control, adjustment of mA and/or kV according to patient size. COMPARISON: [facility], CT, CT CHEST ABD PELVIS W CON, 01/02/2017, 9 :54. FINDINGS: Image quality: There is motion artifact limiting evaluation. Pulmonary arteries: Pulmonary arteries are normal in size, and demonstrate no intraluminal filling defects to suggest central pulmonary embolism. Evaluation of subsegmental branches is limited due to motion artifact. Lungs and pleura: There is confluent airspace consolidation within the bilateral lower lobes as well as in the dependent segments of the upper lobes. Findings are consistent with pneumonia. No pleural effusions or pneumothorax. Central and peripheral airways are patent. Mediastinum: Heart size is normal, without pericardial effusion. There multiple mildly enlarged mediastinal and right hilar lymph nodes which are increased in size from the prior study. These include a fraud representative subcarinal node measuring 1.3 cm in short axis. Thoracic aorta is normal in caliber and enhancement. Esophagus is normal in caliber, with a small hiatal hernia. Bones and chest wall: No suspicious bony lesions. Ribs and thoracic spine appear intact throughout. Thyroid gland demonstrates no discrete nodules. No axillary or supraclavicular adenopathy. Abdomen: Visualized upper abdominal solid organs appear normal in the early arterial phase of enhancement. IMPRESSION: 1. Bilateral areas of consolidation, most prominent within the right lower lobe , consistent with pneumonia. 2. No evidence of central pulmonary embolism. Evaluation of subsegmental branches limited to motion artifact. 2. Mild mediastinal and right hilar lymph node enlargement new from the prior study. Although the findings may be reactive secondary to patient's presumed pneumonia, short term followup is recommended to demonstrate resolution. Dictated by: Issa Loving M.D. on 02/04/2017 at 15:37 Approved by: Issa Loving M.D. on 02/04/2017 at 15:46 PROCEDURE: X-RAY CHEST, TWO VIEWS ([id number]) INDICATIONS: cough TECHNIQUE: 2 views of the chest were acquired. COMPARISON: [facility], CHEST 2VW, 01/26/2017, 12:58 PM. FINDINGS: Surgical changes and devices: None. Lungs and pleura: No pleural effusions or pneumothorax. There are confluent left retrocardiac lower lobe airspace opacities consistent with consolidation. Mediastinum: Mediastinal contours are normal. Heart size is normal. Bones and chest wall: No suspicious bony abnormalities. Soft tissues appear unremarkable. IMPRESSION: 1. Left lower lobe retrocardiac consolidation likely representing pneumonia given clinical history. Dictated by: Issa Loving M.D. on 02/04/2017 at 10:08 Brief History HPI obtained by Dr. 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 states she had similar symptoms before patient developed any symptoms. She Had URI symptoms 2-3 weeks ago which improved by itself. She was not treated with antibiotics but developed diarrhea 5 days after onset of URI symptoms. She was diagnosed with C. difficile colitis and started on antibiotics. She will complete her antibiotic after 3 days. She has on and off diarrhea currently. states patient/ started to have similar symptoms of URI few days after she started to have symptoms. Symptoms include cough, stuffiness and malaise. recovered pretty quickly but patient continued to have progressively worsening coughing and dyspnea. Cough was initially dry but eventually became productive of sputum. He also had low-grade fever. Denies pleuritic chest pain. He had one episode of diarrhea few days ago but resolved now. He also has bilateral eye redness and discharge/crusting since yesterday. He has multiple squamous and basal cell skin cancer. He had recent excision of lesions on his left forearm. He is also scheduled to undergo additional excisions on forearm and lower extremities next week ED course: Tachypneic 28/m, tachycardic 115/m, BP 125/72, saturating 89% on room air, Chest x-ray showed left lower lobe pneumonia, EKG sinus tach Cefepime, Levaquin, vancomycin, given for HCAP given patient with cancer on chemotherapy and admission requested. 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 acute dx #Sepsis due to HCAP, Tachycardic and tachypneic, procal 0.78. CXR left lower lobe retrocardiac pneumonia, CT chest showed dense consolidation at bilateral bases R>L, possibly represent post obstructive pneumonia. PE was ruled out. infectious w/u were all ngtd: sputum cx, Legionella and pneumococcus urine antigen, resp PCR panel. pt was started on Cefepime, Levaquin, vancomycin in ED. continued cefepime/levaquin per ID. patient responded slowly, symptoms were resolving but mild hypoxia continued. Patient was assessed by RT on d/c, recommended 2liter NC O2 supplement on exertion. patient was discharged with stable respiratory status, plan is to continue Levaquin 9more days. # Acute hypoxic respiratory failure due to pneumonia, probable STEVEN pt required O2 supplement with NC 2-3liter throughout hospitlization, noted to drop Spo2 high80% with exertion, pt received aggressive chest pain, Acapella, which was helpful for expectoration. Patient was given temporary O2 supplement as noted above. patient also had worse hypoxic episode at night, based on family 's observation, apneic episodes, it was suspected STEVEN, recommended formal sleep study once pneumonia is resolved. # acute bacterial conjunctivis, started on erythromycin eye drop # history of MS, patient also noticed severe lower extremity weakness with MS flare in the past, which was similar to recent worsening of LE weakness, denied any paresthesia, focal weakness. No additional imagines were obtained. Patient regained strength but still not back to baseline, PT recommended initially SNF but given rapid improvement, good family support, pt was discharged to home with home PT. #severe hyokalemia, POA, presumably due to GI fluid loss, repleted as needed target>4, stable prior to d/c # Follicular lymphoma on rituximab monthly , last dose mid December, pt was seen by Dr Patel given mild mediastinal and right hilar lymph node enlargement on CT , possible post-obstructive PNA. After comparing previous CT, it was thought to be reactive LAD from pneumonia, no further recommendation was given. pt will continue to follow up with in the clinic. chronic dx # skin cancer ,squamous cell and basal cell carcinoma, patient has scheduled excision next week ,may need to reschedule # BPH -c/w doxazosin # HLD -c/w statin Exam Vital Signs (Last) Date Time Temp Pulse Resp B/P Pulse Ox O2 Delivery O2 Flow Rate FiO2 02/09/17 12:08 Nasal Cannula 2.00 02/09/17 11:58 88 02/09/17 09:58 93 02/09/17 08:38 36.9 16 103/62 Exam NAD, comfortably laying down on the bed no JVD, MMM, no LAD RRR, nl s1, s2 no mrg CTAB, no w,c S,distended bowel, nontender, BS+ mildly edematous left hand, improved from yesterday, sensory intact LE: warm, no edema, pulses 2/2 Test 02/04/17 09:30 02/04/17 11:15 02/04/17 15:25 02/06/17 05:30 D-Dimer 1.10mg/L FEU (<0.50) Troponin T 0.010ug/L (0.0-0.011) Pro-B-Type Natriuretic Peptide 1540pg/mL (0-486) Hold Denise Top Tube Received (Received) Lactic Acid Level 1.2mmol/L (0.4-2.0) Urine Color Yellow (YELLOW) Urine Appearance Clear (CLEAR,HAZY) Urine pH 6.5 (5.0-8.0) Urine Specific [place] <1.005 (1.003-1.035) Urine Protein 30mg/dL (NEG,TRACE) Urine Glucose (UA) Negativemg/dL (NEGATIVE) Urine Ketones Negativemg/dL (NEGATIVE) Urine Occult Blood Trace (NEGATIVE) Urine Nitrite Negative (NEGATIVE) Urine Bilirubin Negative (NEGATIVE) Urine Urobilinogen Normalmg/dL (NORMAL) Urine Leukocyte Esterase Negative (NEGATIVE) Urine RBC 3-10/hpf (0-2) Urine WBC 0-5/hpf (0-5) Urine Epithelial Cells Few/hpf (NONE-MOD) Urine Crystals None seen (NONE SEEN) Urine Bacteria None/hpf (NONE-FEW) Urine Hyaline Casts None/lpf (NONE) Urine Granular Casts None seen (NONE SEEN) Urine Waxy Casts None seen (NONE SEEN) Urine Red Blood Cell Casts None seen (NONE SEEN) Urine White Blood Cell Casts None seen (NONE SEEN) Urine Mucus None seen (None Seen) Urine Trichomonas None seen (NONE SEEN) Urine Yeast None (NONE SEEN) Urinalysis Comment None Urine Culture Reflexed Not indicated Urine Legionella pneumophilia Ag Negative (Negative) Cryptococcus Antigen Negative (Negative) Test 02/09/17 05:22 White Blood Count 5.2th/mm3 (3.8-10.1) Red Blood Count 3.47mil/mm3 (4.40-5.80) Hemoglobin 10.4g/dL (13.8-17.2) Hematocrit 30.2% (41.0-50.0) Mean Corpuscular Volume 87.0fL (81-100) Mean Corpuscular Hemoglobin 30.0pg (27.0-35.0) Mean Corpuscular Hemoglobin Concent 34.4% (32.0-37.0) Red Cell Distribution Width 14.1% (12.3-15.4) Platelet Count 168bil/L (150-400) Neutrophils (%) (Auto) 80.1% (40-74) Lymphocytes (%) (Auto) 7.1% (14-46) Monocytes (%) (Auto) 8.4% (4-12) Eosinophils (%) (Auto) 2.1% (0-5) Basophils (%) (Auto) 0.4% (0-3) Sodium Level 138mEq/L (134-144) Potassium Level 3.9mEq/L (3.5-5.2) Chloride Level 103mEq/L (97-108) Carbon Dioxide Level 25mmol/L (18-29) Blood Urea Nitrogen 14mg/dL (8-27) Creatinine 0.63mg/dL (0.76-1.27) Estimat Glomerular Filtration Rate 131mL/min (>59) Glucose Level 117mg/dL (60-99) Calcium Level 7.9mg/dL (8.5-10.1) Phosphorus Level 3.1mg/dL (2.5-4.9) Magnesium Level 1.9mg/dL (1.6-2.6) Total Bilirubin 0.8mg/dL (0.0-1.2) Aspartate Amino Transf (AST/SGOT) 70U/L (0-50) Alanine Aminotransferase (ALT/SGPT) 54U/L (0-44) Alkaline Phosphatase 93U/L (25-160) Total Protein 4.4g/dL (6.4-8.4) Albumin 2.2g/dL (3.4-5.0) Procalcitonin 0.29ng/mL (0.00-0.08) Discharge Medications Discharge Medications Aspirin (Aspirin) 81 Mg Tablet 81 MG PO DAILY (Reported) Calcium Carb/Magnesium Cmb #10 (Terrell-Mag Tablet Chewable) 1 Each Tab.chew 1 EACH PO DAILY (Reported) Cholecalciferol (Vitamin D3) (Vitamin D3) 4,000 Unit Capsule 4,000 UNIT PO DAILY (Reported) Doxazosin (Cardura) 1 Mg Tablet 1 MG PO DAILY (Reported) Erythromycin Ophth Oint (Erythromycin Ophth Oint) 3.5 Gm Oint...g. 1 APPLIC BOTH _EYES TID Prescribed by: THOMAS ADRIAN MD Lactobac Cmb #3/Fos/Pantethine (Probiotic & Acidophilus Cap) 1 Each Capsule 1 EACH PO DAILY (Reported) Levofloxacin (Levaquin) 750 Mg Tablet 750 MG PO DAILYAC Prescribed by: THOMAS ADRIAN MD Lovastatin (Lovastatin) 40 Mg Tablet 20 MG PO HS (Reported) Psyllium Husk/Aspartame (Metamucil Fiber Singles Packet) 3.4 Gm Powd.pack 3.4 GM PO prn (Reported) Ubidecarenone/Vit E Acetate (Co Q-10 100 mg Softgel) 1 Each Capsule 1 EACH PO DAILY (Reported) As needed Acetaminophen (Acetaminophen) 325 Mg Tablet 650 MG PO Q4H PRN PRN For Pain ( Reported) Additional med instructions Please take Levofloxacin 750mg for 9more days Followup Plan Disposition: home Discharge Diet: No restrictions Discharge Activity: No restrictions Patient Instructions You were hospitalized with symptoms of pneumonia, generalized weakness. your condition significantly improved with medical treatment. Please follow medicine instruction as above and follow up with your doctor in 2weeks Please note that your oxygen level dropped while moving, please use Oxygen on your nare when you mobilize and at night until you see your doctor. Please note that given your observed apenea episodes, you will benefit from sleep study, which can be arranged by your doctor Follow-up Provider: Paul Zazueta MD Follow-up with PCP in: 2 weeks Time spent 65min Thomas Adrian MD Feb 09, 2017 16:51
== END 2017-02-09 13:55 | disposition home health service (06) | DRG 871 ==
LOC: SED 08:55 → OSC 11:56
PROVIDERS: ADMIT Internal Medicine; ATTEND Internal Medicine
DX: A41.9 Sepsis, unspecified organism (principal); J18.9 Pneumonia, unspecified organism; J96.01 Acute respiratory failure with hypoxia; C82.23 Follicular lymphoma grade III, unspecified, intra-abdominal lymph nodes; E78.5 Hyperlipidemia, unspecified; N40.0 Benign prostatic hyperplasia without lower urinary tract symptoms; G35 Multiple sclerosis; E87.6 Hypokalemia; G47.33 Obstructive sleep apnea (adult) (pediatric); Z87.891 Personal history of nicotine dependence; Z88.0 Allergy status to penicillin; H10.33 Unspecified acute conjunctivitis, bilateral; Z79.899 Other long term (current) drug therapy